=== PATIENT | male | born 2000 | race African-American/Black ===

== ENCOUNTER 2020-11-21 22:21 | Emergency (ER) | payer OTHER ==
[~2020-11-21] VITALS: Ht 172.7 cm; Wt 100.0 kg
[2020-11-22 00:20] VITALS: BP 123/76
[2020-11-22] MEDS ORDERED: MUPI22OI2 TP (00:35)
[2020-11-22] MEDS ORDERED: SULF1TAB24 PO (00:35)
--- NOTE | 2020-11-22 00:36 | PHYS DOC ---
General Adult EDM: Chief Complaint: EARACHE/EAR PAIN HPI: HPI: Patient is a 20 year old male who presents emergency department with a chief complaint that the antibiotics he was put on by urgent care is not taking care of the infection of the skin on his right ear. Patient states he was seen for a boil in his ear and was started on antibiotics on 15 November that do not seem to be working, patient states that they abscess is getting worse. Patient denies any fever or chills, denies hearing loss, denies rashes of his skin, denies nausea vomiting or diarrhea, denies visual changes or dizziness. Patient denies any other physical complaints or physical concerns. (JUSTIN PEARSON APRN) Review of Systems: Review of Systems: 14 body systems of review of systems have been reviewed. See HPI for pertinent positives and negative responses, otherwise all other systems are negative, nonpertinent or noncontributory. Constitutional: Negative except as outlined in HPI above. Skin: Negative except as outlined in HPI above. Eyes: Negative except as outlined in HPI above. HENT: Negative except as outlined in HPI above. Respiratory: Negative except as outlined in HPI above. Cardiovascular: Negative except as outlined in HPI above. GI: Negative except as outlined in HPI above. : Negative except as outlined in HPI above. Musculoskeletal: Negative except as outlined in HPI above. Integument: Negative except as outlined in HPI above. Neurologic: Negative except as outlined in HPI above. Endocrine: Negative except as outlined in HPI above. Lymphatic: Negative except as outlined in HPI above. Psychiatric: Negative except as outlined in HPI above. (JUSTIN PEARSON APRN) Heart Score: C/O Chest Pain: No Risk Factors: Risk Factors: DM, Current or recent (<one month) smoker, HTN, HLP, family history of CAD, obesity. Risk Scores: Score 0 - 3: 2.5% MACE over next 6 weeks - Discharge Home Score 4 - 6: 20.3% MACE over next 6 weeks - Admit for Clinical Observation Score 7 - 10: 72.7% MACE over next 6 weeks - Early Invasive Strategies (JUSTIN PEARSON APRN) Physical Exam: PE: Constitutional: Well developed, well nourished, no acute distress, non-toxic appearance. 20-year-old male in no apparent distress. HENT: Normocephalic, atraumatic. Right or left tympanic membrane, the left external auditory canal within normal limits, the right external auditory canal superior surface most lateral aspect near opening into jim has draining abscess, 2 mm in diameter. Eyes: Conjunctiva normal, no discharge. Neck: Normal range of motion, no stridor. Cardiovascular: No cyanosis appreciated, distal cap refill less than 2 seconds. Lungs & Thorax: Patient is in no respiratory distress, no audible adventitious lung sounds appreciated. Abdomen: Nontender, no abnormalities noted. Skin: Warm, dry, no erythema, no rash. See HEENT note for focused skin assessment. Back: No tenderness, no deformities. Extremities: No tenderness, no cyanosis, no clubbing, ROM intact, no edema. Neurologic: Alert and oriented X 3, normal motor function, normal sensory function, no focal deficits noted. Psychologic: Affect normal, judgement normal, mood normal. (JUSTIN PEARSON APRN) Current Patient Data: Vital Signs: Vital Signs Date Time Temp Pulse Resp B/P (MAP) Pulse Ox O2 Delivery O2 Flow Rate FiO2 11/21/20 23:49 98.6 62 16 123/76 (92) 98 Room Air 98.6 (JUSTIN PEARSON APRN) EKG: EKG: [] (JUSTIN PEARSON APRN) Radiology/Procedures: Radiology/Procedures: [] (JUSTIN PEARSON APRN) Course & Med Decision Making: Course & Med Decision Making Pertinent Labs and Imaging studies reviewed. (See chart for details) 20-year-old male, vital signs reviewed, presents emergency department for abscess infection in right ear canal, was started on Keflex and Cortisporin eardrops on 15 November, patient reports that the abscess is getting worse. Physical examination shows abscess right auditory canal that is draining, will order swab for culture and sensitivity, will change antibiotic to Bactrim DS, along with mupirocin ointment, discontinue Keflex and Cortisporin drops. Follow-up with primary care if symptoms seem to be improving, follow-up with ENT for symptoms not improving. Patient gave verbal understanding discharge home instructions, follow-up with PCP, follow-up with ENT, return to ER precautions and concerns, patient had no further questions or concerns were discharged home without incident. (JUSTIN PEARSON APRN) Course & Med Decision Making Patients Care and treatment plan provided by ER Nurse Practitioner. I was available for consult. Patient's chart reviewed. (TIKI AGUILA I DO) Sinan Disclaimer: Sinan Disclaimer: This electronic medical record was generated, in whole or in part, using a voice recognition dictation system. (JUSTIN PEARSON APRN) Departure Departure Impression: Primary Impression: Abscess of right ear canal Disposition: HOME / SELF CARE / HOMELESS Condition: GOOD Referrals: FREIDA STROUD (PCP) Patient Instructions: Abscess Additional Instructions: You're seen today in the emergency department for a skin infection of your right ear canal, please stop taking the Keflex and Cortisporin drops you're prescribed by the urgent care providers, I have prescribed for you Bactrim DS and mupirocin ointment, please use as directed. If improving, please follow-up with your primary care later this week for wound evaluation, if worsening or not improving, please follow-up with a ENT specialist this week. Please return to the emergency department for worsening symptoms or other concerns. A culture was obtained today and sent to the lab, if the antibiotic I prescribed does not cover the specific bacteria of concern, you will be contacted by the telephone number you left with the admitting/small package and bundle sorter clerk's. It was a pleasure taking care of you today in the emergency department and I thank you for al lowing me to participate in your emergency health care needs. EMERGENCY DEPARTMENT GENERAL DISCHARGE INSTRUCTIONS Thank you for coming to [facility] Emergency Department (ED) today and trusting us with you care. We trust that you had a positive experience in our Emergency Department. If you wish to speak to the department management, you may call the Director at [phone]. YOUR FOLLOW UP INSTRUCTIONS ARE FOLLOWS: 1. Do you have a private Doctor? If you do not have a private doctor, please ask for a resource list of physicians or clinics that may be able to assist you with follow up care. 2. The Emergency Physicain has interpreted your x-rays. The X-Ray specialist will also review them. If there is a change in the findings, you will be notified in 48 hours when at all possible. 3. A lab test or culture has been done, your results will be reviewed and you will be notified if you need a change in treatment. ADDITIONAL INSTRUCTIONS AND INFORMATION: 1. Your care today has been supervised by a physician who is specially trained in emergency care. Many problems require more than one evaluation for a complete diagnosis and treatment. We recommend that you schedule your follow up appointment as recommended to ensure complete treatment of you illness or injury. If you are unable to obtain follow up care and continue to have a problem, or if your condition worsens, we recommend that you return to the ED. 2. We are not able to safely determine your condition over the phone nor are we able to give sound medical advice over the phone. For these safety reasons, if you call for medical advice we will ask you to come to the ED for further evaluation. 3. If you have any questions regarding these discharge instructions please call the ED at [phone]. SAFETY INFORMATION: In the interest of safety, wellness, and injury prevention; we encourage you to wear your sealbelt, if you smoke; quite smoking, and we encourage family to use a protective helmet for bicycling and other sporting events that present an increased risk for head injury. IF YOUR SYMPTOMS WORSEN OR NEW SYMPTOMS DEVELOP, OR YOU HAVE CONCERNS ABOUT YOUR CONDITION; OR IF YOUR CONDITION WORSENS WHILE YOU ARE WAITING FOR YOUR FOLLOW UP APPOINTMENT; EITHER CONTACT YOUR PRIMARY CARE DOCTOR, THE PHYSICIAN WHOSE NAME AND NUMBER YOU WERE GIVEN, OR RETURN TO THE ED IMMEDIATELY. Scripts Sulfamethoxazole/Trimethoprim (BACTRIM DS TABLET) 1 Each Tablet 1 TAB PO BID for abscess for 10 Days, #20 TAB 0 Refills Prov: JUSTIN PEARSON APRN 11/22/20 Mupirocin (MUPIROCIN OINTMENT) 22 Gm Oint...g. 1 GENI TP TID for WOUND CARE, #1 TUBE 0 Refills Prov: JUSTIN PEARSON APRN 11/22/20 JUSTIN PEARSON APRN Nov 22, 2020 00:36 TIKI AGUILA DO Nov 24, 2020 03:48
[2020-11-22] MEDS ORDERED: HYDROcodone/APAP 5/325MG 1 TAB TABLET PO ONE (01:00)
== END 2020-11-22 00:55 | disposition home or self-care (01) ==
LOC: ER 22:21
DX: H66.41 Suppurative otitis media, unspecified, right ear (principal)
CPT/HCPCS: 87071; 87075; 99283